=== PATIENT | male | born 1990 | race Caucasian/White ===

== ENCOUNTER 2019-01-31 19:27 | Emergency (ER) | payer OTHER ==
[2019-01-31] MEDS ORDERED: IBUPROFEN 800 MG TABLET PO ONE (19:42)
--- NOTE | 2019-01-31 19:42 | ER Document Report ---
ED Medical Screen (RME) - General Chief Complaint: Finger Injury Stated Complaint: FINGER INJURY Time Seen by Provider: 01/31/19 19:40 Mode of Arrival: Ambulatory Information source: Patient Notes: 28-year-old male presented to ED for injury to his middle finger on his right hand. He states he got it caught in the door at work. He states he did it at change of shift about 7:00 it is now 7:30 PM. He will need a tetanus shot today. Bleeding is under control at this time. There is injury to the nail. I have greeted and performed a rapid initial assessment of this patient. A comprehensive ED assessment and evaluation of the patient, analysis of test results and completion of medical decision making process will be conducted by an additional ED providers. TRAVEL OUTSIDE OF THE [place] IN LAST 30 DAYS: No - Related Data Allergies/Adverse Reactions: Penicillins Allergy (Verified 01/31/19 19:40) Home Medications: essential tremors (trokendi-XR) Past Medical History - Social History Chew tobacco use (# tins/day): No Frequency of alcohol use: None Physical Exam - Vital signs Vitals: Temp Pulse Resp BP Pulse Ox 97.4 F 104 H 18 126/79 H 96 01/31/19 19:32 01/31/19 19:32 01/31/19 19:32 01/31/19 19:32 01/31/19 19:32 Course - Vital Signs Vital signs: Temp Pulse Resp BP Pulse Ox 97.4 F 104 H 18 126/79 H 96 01/31/19 19:32 01/31/19 19:32 01/31/19 19:32 01/31/19 19:32 01/31/19 19:32
[2019-01-31] MEDS ORDERED: DIPH/PERTUSS(ACELL)/TETANUS VAC/PF 0.5 ML SYR (>=10YO) IM ONE (19:43)
--- NOTE | 2019-01-31 20:32 | RADIOLOGY REPORT (SQ) ---
EXAM DESCRIPTION: XR FINGERS COMPLETED DATE/TME: 01/31/2019 19:42 CLINICAL HISTORY: 28 years, Male, injury right middle finger COMPARISON: None. NUMBER OF VIEWS: Three TECHNIQUE: Frontal, oblique, and lateral radiograph were obtained LIMITATIONS: None. FINDINGS: Visualized osseous structures are normal in appearance. Joint spaces are well-maintained. No acute fracture or dislocation is evident. IMPRESSION: No acute osseous anomaly. copyright 2010 [employer]- All Rights Reserved
--- NOTE | 2019-01-31 21:29 | ER Document Report ---
HPI - HPI Time Seen by Provider: 01/31/19 19:40 Pain Level: 2 Notes: Patient is a 28-year-old male no significant past medical history presents complaining of right third distal finger injury after he got crushed in the door at work. Unknown last tetanus. He still able to move his finger without difficulty. Patient states that the finger does hurt, but is not debilitating. He has an allergy to penicillins. No other concerns or complaints. Denies any headache, fever, URI, sore throat, chest pain, palpitations, syncope, cough, shortness of breath, wheeze, dyspnea, abdominal pain, nausea/vomiting/diarrhea, urinary retention, dysuria, hematuria, loss of control of bowel or bladder, numbness/tingling, saddle anesthesia, muscle paralysis, or rash. - ROS Systems Reviewed and Negative: Yes All other systems reviewed and negative Past Medical History - General Information source: Patient - Social History Smoking Status: Never Smoker Chew tobacco use (# tins/day): No Frequency of alcohol use: None Family History: Reviewed & Not Pertinent Patient has suicidal ideation: No Patient has homicidal ideation: No Vertical Provider Document - CONSTITUTIONAL Agree With Documented VS: Yes Notes: PHYSICAL EXAMINATION: GENERAL: Well-appearing, well-nourished and in no acute distress. HEAD: Atraumatic, normocephalic. NECK: Normal range of motion, supple without lymphadenopathy. No midline tenderness. LUNGS: Breath sounds clear to auscultation bilaterally and equal. No wheezes rales or rhonchi. HEART: Regular rate and rhythm without murmurs, rubs, gallops. Musculoskeletal: Rt hand: + irregular superficial flap-like laceration involving the lateral distal fingernail. No erythema, warmth, ecchymosis, deformity, or swelling noted. N/V intact distal. FROM to passive/active at the fingers. Strength 5+/5 to training officer. No scaphoid tenderness. No other bony tenderness of the hand. Extremities: No cyanosis, clubbing, or edema b/l. Peripheral pulses 2+. Capillary refill less than 3 seconds. NEUROLOGICAL: Normal speech, normal gait. Normal sensory, motor exams otherwise unremarkable PSYCH: Normal mood, normal affect. SKIN: see above. No rash - INFECTION CONTROL TRAVEL OUTSIDE OF THE [place] IN LAST 30 DAYS: No Course - Re-evaluation Re-evalutation: 01/31/19 Patient is an afebrile, well-hydrated, 28-year-old male who presents to the ED with Rt finger laceration and injury. Vitals are acceptable without any significant tachycardia, tachypnea, or hypoxia. PE is otherwise unremarkable for any neurovascular compromise, obvious tendon/ligament rupture, obvious fracture/dislocation, septic joint. X-ray was unremarkable for any acute pathology. Patient is nontoxic-appearing. No other labs or imaging warranted at this time based on H&P. I have reviewed with patient that I would like to digital block his finger, suture the flap appropriately, and perform proper wound management. Pt declined and just wants glue with risk/benefit reviewed. Pt was adamant that he would just do glue at home. Wound was thoroughly irrigated/cleansed. Dermabond utilized. Conservative measures otherwise for symptoms. Recheck with your PCM in 3-5 days. Consider consult orthopedics. Return to the ED with any worsening/concerning symptoms otherwise as reviewed in discharge. Patient is in agreement. - Vital Signs Vital signs: Temp Pulse Resp BP Pulse Ox 97.4 F 104 H 18 126/79 H 96 01/31/19 19:32 01/31/19 19:32 01/31/19 19:32 01/31/19 19:32 01/31/19 19:32 Procedures - Laceration/Wound Repair Right Finger 3rd digit Wound length (cm): 0.5 Wound's Depth, Shape: Superficial, Irregular, Flap Wound explored: Clean, No foreign body removed Irrigated w/ Saline (mLs): 100 Wound Debrided: Minimal Wound Repaired With: Dermabond Post-procedure wound care: Sterile dressing applied Post-procedure NV exam normal: Yes Complications: No Discharge - Discharge Clinical Impression: Injury of right middle finger Qualifiers: Encounter type: initial encounter Qualified Code(s): S69.91XA - Unspecified injury of right wrist, hand and finger(s), initial encounter Condition: Stable Disposition: HOME, SELF-CARE Additional Instructions: Keep the skin clean Wash with soap and water Tylenol/ibuprofen if needed Take medication as directed Monitor for any worsening symptoms Recheck with your PCM in 3-5 days Consider consult with Orthopedics for ongoing/worsening symptoms Return to the ED with any worsening symptoms and/or development of fever, h eadache, chest pain, palpitations, syncope, shortness of breath, trouble breathing, abdominal pain, n/v/d, abscess, purulent discharge, red streaks, worsening swelling, or other worsening symptoms that are concerning to you. Prescriptions: Cephalexin Monohydrate [Keflex 500 mg Capsule] 500 mg PO TID #21 capsule Forms: Elevated Blood Pressure, Return to Work Referrals: ORIANA RUIZ JR, DO [ACTIVE PROVISIONAL STAFF] - Follow up as needed
[2019-01-31 22:18] VITALS: BP 121/77
== END 2019-01-31 22:04 | disposition home or self-care (01) ==
LOC: ER 19:27
PROC: 0HQFXZZ Repair Right Hand Skin, External Approach (ICD-10-PCS; principal; 2019-01-31)
DX: S61.212A Laceration without foreign body of right middle finger without damage to nail, initial encounter (principal); W23.0XXA Caught, crushed, jammed, or pinched between moving objects, initial encounter
CPT/HCPCS: 90715